=== PATIENT | female | born 2000 | race Caucasian/White ===

== ENCOUNTER 2018-03-14 20:10 | Inpatient (IN) | payer MEDICAID ==
--- NOTE | 2018-03-14 20:40 | C.PDOC ---
"History Of Present Illness 18 year old female with PMHx of anemia presents to the ED for evaluation. Patient reports she has been bleeding due to her menses for the past month and 2 weeks. Patient last Hb was 5. Patient denies abdominal pain, fever, chills, SOB, CP, weakness, numbness, lightheadedness, dizziness. Chief Complaint (Nursing): Medical Clearance Past Medical History Reviewed: Historical Data, Nursing Documentation, Vital Signs Vital Signs: Last Vital Signs Temp 99 F 03/14/18 22:50 Pulse 116 H 03/14/18 22:50 Resp 18 03/14/18 22:50 BP 119/72 03/14/18 22:50 Pulse Ox 98 03/14/18 23:20 - Medical History PMH: Anemia, Diabetes Surgical History: No Surg Hx Family History: States: Unknown Family Hx - Social History Hx Tobacco Use: No Hx Alcohol Use: No Hx Substance Use: No - Immunization History Hx Tetanus Toxoid Vaccination: No Hx Influenza Vaccination: No Hx Pneumococcal Vaccination: No Review Of Systems Constitutional: Negative for: Fever, Chills Cardiovascular: Negative for: Chest Pain, Palpitations Respiratory: Negative for: Shortness of Breath Gastrointestinal: Negative for: Nausea, Vomiting, Abdominal Pain Genitourinary: Positive for: Vaginal Bleeding. Negative for: Dysuria, Hematuria Musculoskeletal: Negative for: Back Pain Skin: Negative for: Rash Physical Exam - Physical Exam Appears: Non-toxic, No Acute Distress Skin: Normal Color, Warm, Dry Head: Atraumatic, Normacephalic Eye(s): bilateral: Normal Inspection, Conjunctiva Pale Oral Mucosa: Moist Neck: Normal ROM, Supple Chest: Symmetrical Cardiovascular: Rhythm Regular Respiratory: Normal Breath Sounds, No Rales, No Rhonchi, No Wheezing Gastrointestinal/Abdominal: Soft, No Tenderness, No Guarding, No Rebound Pelvic: Normal External Exam, No Vaginal Bleeding (no active bleeding), No Cervical Motion Tenderness, No Mass, Other (blood clots in the cervix) Extremity: Normal ROM, No Tenderness, No Swelling Neurological/Psych: Oriented x3, Normal Speech Gait: Steady ED Course And Treatment - Laboratory Results Result Diagrams: 03/14/18 21:09 03/14/18 21:09 O2 Sat by Pulse Oximetry: 98 (ON RA) Pulse Ox Interpretation: Normal - CT Scan/US Pelvic US Other Rad Studies (CT/US): Read By Radiologist, Radiology Report Reviewed CT/US Interpretation: EXAM: US Pelvis Complete, Transabdominal. US Pelvis, Transvaginal. US Duplex Arterial/Venous of the Pelvis, Complete. CLINICAL HISTORY: 18 years old, female; Signs and symptoms; Other: Vag bleed; Additional info: Prolonged vaginal. bleed. TECHNIQUE: Real-time transabdominal and transvaginal pelvic ultrasound (complete) with image documentation. Transvaginal imaging was used for better evaluation of the endometrium and adnexa. Real-time. duplex ultrasound scan of the arterial and venous flow of the pelvis with color Doppler flow and. spectral waveform analysis. COMPARISON: No relevant prior studies available. FINDINGS: Uterus/ cervix: No myometrial mass. Endometrium: 2.1 cm in thickness. Right ovary: 3.0 x 2.5 x 2.9 cm hypoechoic lesion with internal echoes. Normal flow. Left ovary : No mass. Normal flow. Free fluid: Small free fluid within pelvis. IMPRESSION : 1. Probable hemorrhagic RIGHT ovarian cyst. Recommend sonographic followup in 6 weeks to. ensure resolution and exclude other etiologies. 2. Thickened endometrium. Clinical correlation is needed. [facility] | Preliminary Radiology Report. CONFIDENTIALITY STATEMENT. This report is intended only for the use of the referring physician , and only in accordance with law, If you received this in error, call [phone]. Page 2 of 2. Thank you for allowing us to participate in the care of your patient. Dictated and Authenticated by: Jorge Sprague MD. 03/14/2018 10 :54 PM Eastern Time ([place] & [place]) Medical Decision Making Medical Decision Making: Plan: * Labs * Fluids * Pelvic US 23:10 - Dr. Romero OB occupational therapy asst was paged for a consult, Dr. Romero states patient will be seen by OB in the morning. Disposition Discussed With : Fito Muro Doctor Will See Patient In The: Hospital Counseled Patient/Family Regarding: Diagnosis - Disposition Disposition: HOSPITALIZED Disposition Time: 23:19 Condition: STABLE Forms: [facility] (American) - POA Present On Arrival: None - Clinical Impression Clinical Impression: Severe anemia, Prolonged menstruation - Scribe Statement The provider has reviewed the documentation as recorded by the Scribe Thor Felix All medical record entries made by the Scribe were at my direction and personally dictated by me. I have reviewed the chart and agree that the record accurately reflects my personal performance of the history, physical exam, medical decision making, and the department course for this patient. I have also personally directed, reviewed, and agree with the discharge instructions and disposition."
[2018-03-14] MEDS ORDERED: Sodium Chloride 0.9% 1,000 ML IV ONE (20:47)
[2018-03-14 21:14] LABS: BASO # 0.1 K/uL (0.0-0.2); BASO % 0.7 % (0.0-2.0); EOS % 0.2 % (0.0-4.0); LYMPH # 2.5 K/uL (1.0-4.3); MEAN CELL VOLUME 66.7 fL (81.0-99.0); MEAN CORPUSCULAR HEMOGLOBIN 20.6 pg (27.0-31.0); MEAN CORPUSCULAR HGB CONC 30.8 g/dL (33.0-37.0); MEAN PLATELET VOLUME 6.5 fL (7.2-11.7); MONO # 0.8 K/uL (0.0-0.8); MONO % 6.9 % (0.0-10.0); NEUT # 7.6 K/uL (1.8-7.0); NEUT % 69.2 % (50.0-75.0); NRBC % 0.2 % (0.0-2.0); RBC 2.67 Mil/uL (3.80-5.20); RED CELL DISTRIBUTION WIDTH 20.2 % (11.5-14.5); WHITE BLOOD COUNT 10.9 K/uL (4.8-10.8)
[2018-03-14 21:25] LABS: INR 1.2; PROTHROMBIN TIME 13.2 SECONDS (9.7-12.2)
[2018-03-14 21:27] LABS: IRON 14 ug/dL (37-170)
[2018-03-14 21:29] LABS: ALB/GLOB RATIO 1.3 (1.0-2.1); ALBUMIN 4.4 g/dL (3.5-5.0); ALT/SGPT 23 U/L (9-52); AST/SGOT 19 U/L (14-36); BLOOD UREA NITROGEN 7 mg/dL (7-17); CALCIUM 9.4 mg/dl (8.6-10.4); GFR AFRICAN-AMERICAN > 60; GFR NON-AFRICAN AMERICAN > 60
[2018-03-14 21:31] LABS: HEMOGLOBIN 5.5 g/dL (11.0-16.0)
[2018-03-14 21:37] LABS: % IRON SATURATION 3 (20-55); TOTAL IRON BINDING CAPACITY 448 ug/dL (250-450)
[2018-03-15 00:11] VITALS: O2SAT 100
[2018-03-15] MEDS ORDERED: DiphenhydrAMINE 50 mg/ml Inj IVP ONE (02:37)
[2018-03-15 08:15] VITALS: BP 96/60; PULSE 76; RESP 20; TEMP 97.9
--- NOTE | 2018-03-15 09:52 | US ---
Date of service: 03/14/2018 HISTORY: Prolonged vaginal bleeding. LMP 01/24/2018. Negative test (concurrent with this examination). COMPARISON: None available. TECHNIQUE: Negative study for primary or reactivation tuberculosis FINDINGS: UTERUS: Measures 3.8 x 5 x 7.1 cm. Normal in size and appearance. No fibroid or other mass lesion seen. ENDOMETRIUM: Measures 21.1 mm in diameter. Endometrial thickening/ hypertrophy without focal abnormality. CERVIX: No cervical abnormality identified. RIGHT OVARY: Measures 3.4 x 3.7 x 5.2 cm. No solid mass. Normal flow. Complex cyst 3 x 2.5 x 2.9 cm the overall appearance suggests hemorrhagic cyst with debris and internal echoes. LEFT OVARY: Measures 1.9 x 2.3 x 3.5 cm. No solid mass. Normal flow. FREE FLUID: Trace free fluid identified in the pelvis/cul de sac. OTHER FINDINGS: None. IMPRESSION: Endometrial hypertrophy without focal abnormality. No visible intrauterine products of conception. Complex likely hemorrhagic cyst right adnexa. Concordant results (preliminary interpretation) provided by [facility]. Procedure Completed: 21:53 Preliminary ([facility]) Report: Dictated and Authenticated: 22:54 Final Interpretation: 09:50 March 15, 2018.
[2018-03-15] MEDS ORDERED: Ferric Sodium Gluconat Complex 62.5 mg/5 ml Vial IVPB SCH ×2 (10:00→11:00)
[2018-03-15 11:21] LABS: BASO % 0.4 % (0.0-2.0); EOS # 0.1 K/uL (0.0-0.7); EOS % 0.8 % (0.0-4.0); LYMPH # 2.8 K/uL (1.0-4.3); LYMPH % 34.1 % (20.0-40.0); MEAN CORPUSCULAR HEMOGLOBIN 22.9 pg (27.0-31.0); MEAN CORPUSCULAR HGB CONC 32.1 g/dL (33.0-37.0); MEAN PLATELET VOLUME 6.7 fL (7.2-11.7); MONO # 0.7 K/uL (0.0-0.8); MONO % 8.5 % (0.0-10.0); NEUT # 4.6 K/uL (1.8-7.0); NEUT % 56.2 % (50.0-75.0); NRBC % 0.2 % (0.0-2.0); RBC 3.4 Mil/uL (3.80-5.20); WHITE BLOOD COUNT 8.2 K/uL (4.8-10.8)
[2018-03-15 11:36] LABS: HEMOGLOBIN 7.8 g/dL (11.0-16.0); MEAN CELL VOLUME 71.3 fL (81.0-99.0)
[2018-03-15 11:43] LABS: ALB/GLOB RATIO 1.3 (1.0-2.1); ALBUMIN 4.3 g/dL (3.5-5.0); ALT/SGPT 16 U/L (9-52); AST/SGOT 18 U/L (14-36); BLOOD UREA NITROGEN 7 mg/dL (7-17); CALCIUM 9.2 mg/dl (8.6-10.4); GFR AFRICAN-AMERICAN > 60; GFR NON-AFRICAN AMERICAN > 60
--- NOTE | 2018-03-15 14:02 | CP.PCM.PN ---
Subjective - Date & Time of Evaluation Date of Evaluation: 03/15/18 Time of Evaluation: 13:56 - Subjective Subjective: Internal Medicine Progress Note - Dr Muro Service Patient seen and examined at bedside. Per nursing no acute events overnight. Patient is doing well, received 2 units of PRBCs. Patient is ambulating and tolerating diet. Offers no complaints at this time. Denies headaches, dizziness , cp, palpitations, sob, abdominal pain, urinary symptoms, changes in bowel habits. Objective - Vital Signs/Intake and Output Vital Signs (last 24 hours): Temp Pulse Resp BP Pulse Ox 97.9 F 76 20 96/60 L 100 03/15/18 08:00 03/15/18 08:00 03/15/18 08:00 03/15/18 08:00 03/15/18 08:00 Intake and Output: 03/15/18 03/15/18 06:59 18:59 Intake Total 325 Balance 325 - Medications Medications: Current Medications Ferric Sodium Gluconate Complex (Ferrlecit) 125 mg IVPB DAILY YASMIN Stop: 03/23/18 11:01 Last Admin: 03/15/18 11:18 Dose: 125 mg Pneumococcal Polyvalent Vaccine (Pneumovax 23 Vaccine) 0.5 ml SC .ONCE ONE Stop: 03/18/18 10:01 - Labs Labs: 03/15/18 11:12 03/15/18 11:12 PT 13.2 SECONDS (9.7-12.2) H 03/14/18 21:09 INR 1.2 03/14/18 21:09 APTT 33 SECONDS (21-34) 03/14/18 21:09 - Constitutional Appears: Non-toxic, No Acute Distress - Head Exam Head Exam: ATRAUMATIC, NORMAL INSPECTION, NORMOCEPHALIC - Eye Exam Eye Exam: EOMI, Normal appearance Pupil Exam: NORMAL ACCOMODATION - ENT Exam ENT Exam: Mucous Membranes Moist - Neck Exam Neck Exam: Full ROM - Respiratory Exam Respiratory Exam: Clear to Ausculation Bilateral, NORMAL BREATHING PATTERN. absent: Rales, Rhonchi, Wheezes - Cardiovascular Exam Cardiovascular Exam: REGULAR RHYTHM, +S1, +S2 - GI/Abdominal Exam GI & Abdominal Exam: Soft, Normal Bowel Sounds. absent: Guarding, Rigid, Tenderness - Rectal Exam Rectal Exam: Deferred - Extremities Exam Extremities Exam: Normal Inspection - Back Exam Back Exam: NORMAL INSPECTION - Neurological Exam Neurological Exam: Alert, Awake, Normal Gait, Oriented x3 - Psychiatric Exam Psychiatric exam: Normal Affect, Normal Mood - Skin Skin Exam: Dry, Normal Color, Warm Assessment and Plan - Assessment and Plan (Free Text) Assessment: A/P: Patient is a 18 year old female with no significant past medical history who presented with menorrhagia and symptomatic anemia Symptomatic Anemia secondary to Menorrhagia -Stable, afebrile -Hgb on admission was 5.5 -S/P 2 units of PRBCs -Post transfusion Hgb noted to be 7.8 -Patient receiving IV iron supplementation -Anemia workup suggests iron deficiency anemia -TVUS showed endometrial hypertrophy with complex likely hemorrhagic cyst on right adnexa -Patient evaluated by OBGYN, who recommends starting patient on Loestrin Fe 1- 20 -Will clear patient for discharge home -Patient to follow up with PMD and OBGYN within 1 week; we also recommend outpatient Heme/Onc consultation History of Hepatitis -Patient's mother states that she had hepatitis in the past -Acute Hepatitis Panel sent to the lab -Patient to follow up results as outpatient DISPO: Patient is medically cleared for discharge home. Patient prescribed Ferrous sulfate and Colace daily with Loestrin Fe. Patient to follow up with PMD , [facility] [employer] outpatient. We also recommend Heme/Onc consult outpatient. Plan discussed with Dr Bhaskar Garcia DO PGY-2
[2018-03-15] MEDS ORDERED: Pneumococcal 23-Valent Vaccine SC ONE (14:45)
[2018-03-15 15:18] LABS: HEPATITIS B SURFACE AG Negative (NEGATIVE)
[2018-03-15 15:24] LABS: HEPATITIS A IGM NEGATIVE (NEGATIVE); HEPATITIS B CORE AB NEGATIVE (NEGATIVE)
[2018-03-15 15:36] LABS: HEPATITIS C ANTIBODY NEGATIVE (NEGATIVE)
--- NOTE | 2018-03-15 19:48 | CP.PCM.CON ---
History of Present Illness - History of Present Illness History of Present Illness: Patient is a 18 year old female with past medical history of hepatitis ( unsure which type) and metabolic syndrome, who presented to the ED yesterday () with consistent/heavy vaginal bleeding of 6 weeks' duration. Patient states that the bleeding began on January 24 of this year and was initially like any other period, but never stopped. Patient did not seek medical attention because she has been under significant stress at work and attributes the onset of this bleeding to emotional stress. Blood is mostly fluid with the passage of some small clots. Patient states she soaks through 4 pads per day. Patient has never been to her knowledge. Patient has been sexually active with one man ( last sexual contact was 6 months ago) and always uses condoms. Patient took control pills earlier this year for one week, but states that her physician took her off of it due to weight-gain. Patient has no personal gynecologic history she is aware of and has never seen a breaking machine operator. Patient was seen "years ago" by Dr. Foley (Clutch [employer]sembler) and was diagnosed with metabolic syndrome, but never started on any medication. Patient complains of an occipital headache, which she says she has had since the bleeding began. Patient denies chest pain, shortness of breath, abdominal pain, dizziness and urinary symptoms. ROS General: Patient denies subjective fevers, chills and rigors. Cardio: Patient denies chest pain, palpitations and SOB Pulm: Patient denies coughing and wheezing GI: Patient denies diarrhea, constipation and abdominal pain : Patient denies dysuria Sleeve Sewer: Patient denies bleeding since admission Review of Systems - Review of Systems Systems not reviewed;Unavailable: Acuity of Condition, Intubated, Other All systems: reviewed and no additional remarkable complaints except (as included in HPI) - Hematologic/Lymphatic Additional comments: See note uder HPI Past Patient History - Past Medical History & Family History Past Family History: Reviewed and not pertinent (except as included in HPI) - Past Social History Smoking Status: Never Smoked - HEMATOLOGICAL/ONCOLOGICAL Hx Anemia: Yes - MUSCULOSKELETAL/RHEUMATOLOGICAL Hx Falls: No - PSYCHIATRIC Hx Substance Use: No - SURGICAL HISTORY Hx Surgeries: No - ANESTHESIA Hx Anesthesia: No Meds Home Medications: Home Medication List Medication Instructions Recorded Confirmed Type Docusate Sodium [Colace] 100 mg PO BID #60 capsule 03/15/18 Rx Ferrous Sulfate [Feosol] 325 mg PO BID #60 tab 03/15/18 Rx Norethindrone-E.estradiol-Iron 1 each PO DAILY #1 packet 03/15/18 Rx [Loestrin Fe 1-20 Tablet] Allergies/Adverse Reactions: Allergies Allergy/AdvReac Type Severity Reaction Status Date / Time No Known Allergies Allergy Verified 03/14/18 20:22 Physical Exam - Constitutional Appears: No Acute Distress, Other (Midly pallid with pale mucous membranes) - Cardiovascular Exam Cardiovascular Exam: Tachycardia, Systolic Murmur (Pulmonic flow murmur, normal rhytm. Lungs CTA bilaterally) - GI/Abdominal Exam GI & Abdominal Exam: Distended (Not Distended), Normal Bowel Sounds, Organomegaly (No Organomegaly), Soft - Exam Speculum exam: NORMAL SPECULUM EXAM Bimanual exam: NORMAL BIMANUAL EXAM (Unable to palpate adnexa secondary to patient's body habitus) Results - Vital Signs Recent Vital Signs: Last Vital Signs Temp 97.9 F 03/15/18 08:00 Pulse 76 03/15/18 08:00 Resp 20 03/15/18 08:00 BP 96/60 L 03/15/18 08:00 Pulse Ox 100 03/15/18 08:00 - Labs Result Diagrams: 03/15/18 11:12 03/15/18 11:12 Labs: Laboratory Results - last 24 hr 03/14/18 03/14/18 03/14/18 21:09 21:09 21:09 WBC 10.9 H RBC 2.67 L Hgb 5.5 L* Hct 17.8 L MCV 66.7 L MCH 20.6 L MCHC 30.8 L RDW 20.2 H Plt Count 634 H MPV 6.5 L Neut % (Auto) 69.2 Lymph % (Auto) 23.0 [place] % (Auto) 6.9 Eos % (Auto) 0.2 Baso % (Auto) 0.7 Neut # (Auto) 7.6 H Lymph # (Auto) 2.5 [place] # (Auto) 0.8 Eos # (Auto) 0.0 Baso # (Auto) 0.1 Differential Comment PT 13.2 H INR 1.2 APTT 33 Sodium 139 Potassium 4.1 Chloride 102 Carbon Dioxide 26 Anion Gap 16 BUN 7 Creatinine 0.6 L Est GFR ( Amer) > 60 Est GFR (Non-Af Amer) > 60 Random Glucose 100 Calcium 9.4 Phosphorus Magnesium Iron TIBC % Saturation Total Bilirubin 0.6 AST 19 ALT 23 Alkaline Phosphatase 94 Total Protein 7.9 Albumin 4.4 Globulin 3.5 Albumin/Globulin Ratio 1.3 Beta HCG, Quant < 2.39 Hepatitis A IgM Ab Hep Bs Antigen Hep B Core IgM Ab Hepatitis C Antibody Blood Type Antibody Screen 03/14/18 03/14/18 03/15/18 21:09 21:09 11:12 WBC 8.2 RBC 3.40 L Hgb 7.8 L D Hct 24.3 L MCV 71.3 L D MCH 22.9 L MCHC 32.1 L RDW 21.0 H Plt Count 557 H MPV 6.7 L Neut % (Auto) 56.2 Lymph % (Auto) 34.1 [place] % (Auto) 8.5 Eos % (Auto) 0.8 Baso % (Auto) 0.4 Neut # (Auto) 4.6 Lymph # (Auto) 2.8 [place] # (Auto) 0.7 Eos # (Auto) 0.1 Baso # (Auto) 0.0 Differential Comment PT INR APTT Sodium Potassium Chloride Carbon Dioxide Anion Gap BUN Creatinine Est GFR ( Amer) Est GFR (Non-Af Amer) Random Glucose Calcium Phosphorus Magnesium Iron 14 L TIBC 448 % Saturation 3 L Total Bilirubin AST ALT Alkaline Phosphatase Total Protein Albumin Globulin Albumin/Globulin Ratio Beta HCG, Quant Hepatitis A IgM Ab Hep Bs Antigen Hep B Core IgM Ab Hepatitis C Antibody Blood Type O POSITIVE Antibody Screen Negative 03/15/18 03/15/18 11:12 14:39 WBC RBC Hgb Hct MCV MCH MCHC RDW Plt Count MPV Neut % (Auto) Lymph % (Auto) [place] % (Auto) Eos % (Auto) Baso % (Auto) Neut # (Auto) Lymph # (Auto) [place] # (Auto) Eos # (Auto) Baso # (Auto) Differential Comment PT INR APTT Sodium 144 Potassium 4.1 Chloride 105 Carbon Dioxide 28 Anion Gap 15 BUN 7 Creatinine 0.6 L Est GFR ( Amer) > 60 Est GFR (Non-Af Amer) > 60 Random Glucose 89 Calcium 9.2 Phosphorus 3.4 Magnesium 2.3 Iron TIBC % Saturation Total Bilirubin 1.1 AST 18 ALT 16 Alkaline Phosphatase 88 Total Protein 7.6 Albumin 4.3 Globulin 3.2 Albumin/Globulin Ratio 1.3 Beta HCG, Quant Hepatitis A IgM Ab Negative Hep Bs Antigen Negative Hep B Core IgM Ab Negative Hepatitis C Antibody Negative Blood Type Antibody Screen - Imaging and Cardiology Pelvic US Status: Image reviewed by me (nl size uterus and adnexa. + about 2x3 Hemorrhagic cyst on Right Ovary) Assessment & Plan - Assessment and Plan (Free Text) Assessment: Assessment & Plan 1) Abnormal Vaginal Bleeding; Chronic Patient's Hb on admission was 5.5. Patient received 2 units of type O blood via transfusion and currently Hb = 7.8; Bleeding has now stopped. Recommended patient follow with outpatient breaking machine operator and consider restarting hormonal control, as this is likely due to hormonal imbalance. Continue Ferrlecit 125 mg IV per Medicine team. 2) Hemorrhagic cyst - Right Ovary; Chronic Not likely contributory and patient denies lower abdominal pain, but may be due to background hormonal imbalance. Follow-up with outpatient gynecology. 3) Thrombocytosis; Acute Patient's platelets elevated at 557. Hematology/Oncology consult recommended. 4) Elevated PT; Acute PT: 13.2 without baseline studies for comparison. Hematology/Oncology consult recommended. 5) Agree with D/c patient home with Rx for L0-Loestrin Fe # 28 to start in AM and to take daily 6) Advised to F/Up with Gynecology ALYSHA Plan: See Included in Assessment
--- NOTE | 2018-03-18 07:27 | HP ---
HISTORY OF PRESENT ILLNESS: The patient was admitted to the hospital with chief complaint of anemia, hemoglobin 5.5, admission. PHYSICAL EXAMINATION: GENERAL: The patient is awake, alert, and oriented. VITAL SIGNS: Temperature 98, pulse 90. HEENT: Within normal limits. NECK: Supple. CHEST: Symmetrical. HEART: Regular. ABDOMEN: Soft. EXTREMITIES: No edema. IMPRESSION AND PLAN: The patient suffers from anemia. The patient to bed rest, blood transfusion . Fito Muro MD
[2018-03-18] MEDS ORDERED: Pneumococcal 23-Valent Vaccine SC ONE (10:00)
== END 2018-03-15 16:03 | disposition home or self-care (01) | DRG 395 ==
LOC: C.ER 20:10 → C.9E 23:20 → C.3T 23:51
PROVIDERS: ADMIT Internal Medicine Pulmonary Disease; ATTEND Internal Medicine Pulmonary Disease
PROC: 30233N1 Transfusion of Nonautologous Red Blood Cells into Peripheral Vein, Percutaneous Approach (ICD-10-PCS; principal; 2018-03-14)
DX: D50.0 Iron deficiency anemia secondary to blood loss (chronic) (principal); N92.0 Excessive and frequent menstruation with regular cycle; R79.1 Abnormal coagulation profile; N83.201 Unspecified ovarian cyst, right side; E11.9 Type 2 diabetes mellitus without complications; E88.81 Metabolic syndrome and other insulin resistance; D47.3 Essential (hemorrhagic) thrombocythemia; Z86.19 Personal history of other infectious and parasitic diseases